=== PATIENT | male | born 1970 | race African-American/Black ===

== ENCOUNTER → 2020-03-22 | Outpatient (CLI) | payer OTHER ==
--- NOTE | 2020-03-25 12:10 | REP ---
LUMBOSACRAL SPINE SERIES: 03/22/20. CLINICAL: Chronic lower back pain. TECHNIQUE: AP lateral and coned down views of the lumbosacral spine. FINDINGS: Alignment and lordosis maintained. Vertebral bodies intact. Disc spaces are within normal limits. IMPRESSION: Normal lumbosacral spine radiograph series. MTDD
== END ==
LOC: M RAD 16:26
PROVIDERS: ATTEND Family Medicine Addiction Medicine
DX: M54.5 Low back pain (principal)

== ENCOUNTER → 2021-05-17 | Outpatient (CLI) | payer OTHER ==
--- NOTE | 2021-05-22 19:16 | SLEEPHOME ---
DATE: 05/17/2021 ORDERED BY: AMPARO [facility] home sleep testing was performed due to concern for the obstructive sleep apnea syndrome. For testing, a [employer]ox T3 respiratory monitoring device was used. Continuous record was made of pulse, oxygen saturation, air flow, chest and abdominal strain, and body position. Nine hours and 59 minutes of data were reviewed. There were 6 hours and 33 minutes marked as time in bed. During the interval marked time in bed, there were 57 respiratory events identified of 10 seconds in duration or greater for a respiratory event index of 8.7. The events were primarily obstructive, more frequent but not exclusive to the supine posture. Baseline pulse rate was 54. Pulse rate ranged 44 to 101. Baseline saturation was 94%. Saturations fell to 85%. Testing was performed in both the supine and nonsupine positions. IMPRESSION: Abnormal home sleep testing with repetitive respiratory events and oxygen desaturations to 85% with a respiratory event index of 8.7 is consistent with the obstructive sleep apnea syndrome. RECOMMENDATION: The patient should be encouraged to undergo a formal sleep evaluation. cc: Angel Emery MD
== END ==
LOC: M SLEEP HO 04-26 10:30
PROVIDERS: ATTEND Physician Assistant
DX: R40.0 Somnolence (principal); R06.83 Snoring

== ENCOUNTER → 2021-07-12 | Outpatient (CLI) | payer OTHER ==
[~2021-07-12] MED LIST: CLAR10CA3 PO; FAMO20TA PO; IBUP200C25 PO; MELO15TA28 PO; ZYRTTAB8 PO
== END ==
LOC: M LABSMTC 09:33
PROVIDERS: ATTEND Anesthesiology
DX: Z01.812 Encounter for preprocedural laboratory examination (principal); Z20.822 Contact with and (suspected) exposure to COVID-19

== ENCOUNTER 2021-07-17 08:28 | Day surgery (SDC) | payer OTHER ==
[~2021-07-17] VITALS: Ht 182.9 cm; Wt 94.3 kg
[~2021-07-17 08:28] MED LIST changes: +NS 1,000 ML IV ONE
[2021-07-17] MEDS ORDERED: fentaNYL 100 MCG/2 ML INJECTION As Ordered ONE (10:47)
[2021-07-17 11:52] VITALS: BP 144/83
[2021-07-17] MEDS ORDERED: propofoL 200 MG/20 ML VIAL As Ordered ONE (12:03)
[2021-07-17] MEDS ORDERED: LIDOCAINE 2% 100MG/5ML SDV (FOR ANES.) As Ordered ONE (12:03)
== END 2021-07-17 12:02 | disposition home or self-care (01) ==
LOC: M OPP 08:28
PROVIDERS: ATTEND Internal Medicine Gastroenterology
DX: D12.5 Benign neoplasm of sigmoid colon (principal); K64.8 Other hemorrhoids; K92.1 Melena; K21.00 Gastro-esophageal reflux disease with esophagitis, without bleeding; R12 Heartburn; Z79.899 Other long term (current) drug therapy; Z91.018 Allergy to other foods; Z91.040 Latex allergy status; Z80.3 Family history of malignant neoplasm of breast
CPT/HCPCS: 43239; 45385; 88305; J3010

== ENCOUNTER → 2021-12-12 | Outpatient (CLI) | payer OTHER ==
[~2021-12-12] MED LIST changes: -NS 1,000 ML IV ONE
== END ==
LOC: M PLAIMG 08:58
PROVIDERS: ATTEND Family Medicine Addiction Medicine
DX: M51.36 Other intervertebral disc degeneration, lumbar region (principal); M48.061 Spinal stenosis, lumbar region without neurogenic claudication

== ENCOUNTER → 2022-02-20 | Outpatient (CLI) | payer OTHER | LOC: M PAIN 08:30 | PROVIDERS: ATTEND Nurse Practitioner Family | DX: M51.16 Intervertebral disc disorders with radiculopathy, lumbar region (principal); G47.33 Obstructive sleep apnea (adult) (pediatric); G43.909 Migraine, unspecified, not intractable, without status migrainosus; Z91.018 Allergy to other foods; Z91.040 Latex allergy status; Z79.899 Other long term (current) drug therapy ==

== ENCOUNTER → 2022-02-27 | Outpatient (CLI) | payer OTHER | LOC: M SOG 14:29 | PROVIDERS: ATTEND Orthopaedic Surgery | DX: M54.2 Cervicalgia (principal) ==